=== PATIENT | female | born 1990 | race African-American/Black ===

== ENCOUNTER 2016-10-27 09:06 | Emergency (ER) | payer MEDICAID ==
[~2016-10-27] VITALS: Ht 170.2 cm; Wt 118.0 kg
[2016-10-27] MEDS ORDERED: KETOROLAC 60MG/2ML VIAL IM ONE (12:00)
[2016-10-27] MEDS ORDERED: LOPERAMIDE HCL 2MG CAPSULE PO ONE (12:30)
[2016-10-27] MEDS ORDERED: ONDANSETRON 4MG ODT PO ONE (12:30)
[2016-10-27 12:50] LABS: CLARITY URINE CLEAR (CLEAR); COLOR URINE YELLOW (YELLOW); GLUCOSE URINE NEGATIVE (NEGATIVE); KETONES URINE NEGATIVE (NEGATIVE); LEUKOCYTE ESTERASE URINE 2+ (NEGATIVE); NITRITE URINE NEGATIVE (NEGATIVE); OCCULT BLOOD URINE 1+ (NEGATIVE); PH URINE 5.5 (4.5-8.0); PROTEIN URINE NEGATIVE (NEGATIVE); UROBILINOGEN URINE 0.2 E.U./dL (0.2-1.0)
[2016-10-27 12:57] VITALS: BP 132/95
== END 2016-10-27 14:32 | disposition home or self-care (01) ==
LOC: ER 10:39
DX: A59.01 Trichomonal vulvovaginitis (principal); N39.0 Urinary tract infection, site not specified; R03.0 Elevated blood-pressure reading, without diagnosis of hypertension
CPT/HCPCS: 81001; 81025; 87210; 96372; 99284; J1885; Q0162; Z7610; 87491; 87591

== ENCOUNTER 2025-03-01 21:27 | Emergency (ER) | payer MEDICAID ==
[~2025-03-01] VITALS: Ht 170.2 cm; Wt 124.0 kg
[~2025-03-01 21:27] MED LIST: ALBU18HF2 IH; D-ME473S50 PO; IBUP-1455 PO
[2025-03-01 21:39] VITALS: BP 171/112; PULSE 130; RESP 18; TEMP 36.8; O2SAT 100; O2SAT 99
[2025-03-02] MEDS: ACETAMINOPHEN 500MG TABLET PO ONE (01:52)
[2025-03-02] MEDS: CYCLOBENZAPRINE 10MG TABLET PO ONE (01:52)
[2025-03-02] MEDS: LIDOCAINE 5% PATCH TOP STA (01:52)
[2025-03-02] MEDS ORDERED: LIDO700A30 TP (01:56)
[2025-03-02] MEDS ORDERED: CYCL10TA21 MT (01:56)
[2025-03-02] MEDS ORDERED: ACET-2708 MT (01:56)
== END 2025-03-02 02:16 | disposition home or self-care (01) ==
LOC: ER 21:27
DX: M54.2 Cervicalgia (principal); M25.512 Pain in left shoulder; I10 Essential (primary) hypertension
CPT/HCPCS: 99284